=== PATIENT | female | born 1985 | race Caucasian/White ===

== ENCOUNTER 2020-02-02 22:43 | Emergency (ER) | payer MEDICAID, OTHER | END 2020-02-03 | disposition home or self-care (01) | LOC: ER 22:43 | DX: Z02.89 Encounter for other administrative examinations (principal) ==

== ENCOUNTER 2020-10-13 13:50 | Emergency (ER) | payer MEDICAID ==
[~2020-10-13] VITALS: Ht 154.9 cm; Wt 68.0 kg
[2020-10-13 14:30] VITALS: BP 143/82
== END 2020-10-13 17:12 | disposition home or self-care (01) ==
LOC: ER 13:50
DX: S92.335A Nondisplaced fracture of third metatarsal bone, left foot, initial encounter for closed fracture (principal); F17.210 Nicotine dependence, cigarettes, uncomplicated; W22.8XXA Striking against or struck by other objects, initial encounter; Y93.89 Activity, other specified; Y92.89 Other specified places as the place of occurrence of the external cause; Y99.8 Other external cause status
CPT/HCPCS: 73630